=== PATIENT | male | born 1960 | race Caucasian/White ===

== ENCOUNTER 2019-11-15 08:30 | Outpatient (RCR) | payer OTHER, SELFPAY ==
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
--- NOTE | 2019-11-20 09:16 | PCPTNOTE ---
Patient did not show up for scheduled appointment this date.
--- NOTE | 2019-11-22 14:23 | PCPTNOTE ---
Patient came in this morning, however, his appointment wasn't until this afternoon, so he cancelled scheduled appointment this date. [ ]
--- NOTE | 2019-11-30 08:39 | PCPTNOTE ---
PHYSICAL THERAPY DISCHARGE NOTE Admitting Provider: Attending Provider: Madison Roland NP Patient:Bentley Hernandez Date of :1960 Bentley has not returned for any further treatments since 11/15/2019, therefore he will be discharged from physical therapy at this time. Follow up phone call was made. Bentley reports that his dizziness is no longer present and that his neck pain is better. He is using moist heat and performing HEP. He stated that he is unable to afford his $60 co pay per visit. Thank you for referring Bentley to [facility]. Please review, sign, date and return this discharge summary GUSTAVO. I have been updated about Bentley's current status and I agree with discharge from the above service at this time. Referring Physician Date
== END 2019-12-04 09:45 | disposition home or self-care (01) ==
LOC: ANHPT 08:30
PROVIDERS: PCP Nurse Practitioner Family; Visit Provider Nurse Practitioner Family
DX: M54.2 Cervicalgia (principal); R42 Dizziness and giddiness
CPT/HCPCS: 97110; 97140; 97162

== ENCOUNTER 2023-01-11 14:07 | Outpatient (CLI) | payer BC, SELFPAY ==
--- NOTE | ~2023-01-11 | MR_ITS ---
MRI of the cervical spine Clinical History: Numbness Technique: Axial T2-weighted and gradient images, and sagittal T1-weighted, T2-weighted, and STIR rey ges were acquired. Findings: There is no fracture or subluxation of the cervical spine. Vertebral bodies maintain normal height and alignment. There are reactive marrow signal changes due to underlying areas of degenerati ve disc disease. At C2-C3, there is a probable small disc extrusion centrally. No austin canal stenosis or cord juan david denys. Bilateral neural foramina are preserved. At C3-C4, there is disc osteophyte complex with flattening of the ventral cord, especially on the lef t side. There is probable bilateral neural foraminal narrowing. At C4-C5, there is mild disc osteophyte complex with mild ventral cord flattening. Bilateral neural f oramina are preserved. At C5-C6, there is mild disc osteophyte complex with associated right neural foraminal compromise. Le ft neural foramen preserved. No austin cord compression identified. At C6-C7, there is disc ossify complex with probable narrowing of the left neural foramen. Right neur al foramen is better preserved. No austin canal stenosis or cord compression. No abnormal signal seen in the spinal cord. Paravertebral soft tissues are unremarkable. Impression: Ebes-qu-yjykznli degenerative spondylosis, as detailed above. There are multilevel disc osteophyte co mplexes, with mild flattening of the ventral cord at C3-C4 and C4-C5, with multilevel neural foramina l narrowing. Reviewed, dictated and finalized at [facility]. Impression: [id number] degenerative spondylosis, as detailed above. There are multile jose disc osteophyte complexes, with mild flattening of the ventral cord at C3-C 4 and C4-C5, with multilevel neural foraminal narrowing.
--- NOTE | ~2023-01-11 | US_ITS ---
EXAMINATION: US art doppler w press UE BI DATE: 01/11/2023 15:25 INDICATION: Peripheral vascular disease. TECHNIQUE: Segmental pressures and plethysmographic and Doppler waveforms of the upper extremity josé miguel lashay were obtained. COMPARISON: None. FINDINGS: Right and left brachial artery pressures of 153 mm Hg and 146 mm Hg, respectively, are concordant (no rmal difference <= 30 mmHg). The right finger:brachial systolic pressure ratio is 0.61 (normal > 0.8) . Arterial Doppler waveforms demonstrate normal upstroke (normal upstroke < 0.2 s). The left finger:brachial systolic pressure ratio is 0.99. Segmental pressure gradients are normal. Ar terial Doppler waveforms demonstrates normal upstroke. IMPRESSION: 1. Decreased right finger:brachial systolic pressure ratio, consistent with right-sided arterial occl usive disease. Reviewed, dictated and finalized at location [facility]. IMPRESSION: 1. Decreased right finger:brachial systolic pressure ratio, consistent with rig ht-sided arterial occlusive disease.
== END 2023-01-11 14:08 | disposition home or self-care (01) ==
PROVIDERS: PCP Family Medicine; Visit Provider Orthopaedic Surgery
DX: I73.9 Peripheral vascular disease, unspecified (principal); M47.22 Other spondylosis with radiculopathy, cervical region
CPT/HCPCS: 72141; 93923

== ENCOUNTER 2023-04-06 01:12 | Day surgery (SDC) | payer BC, SELFPAY ==
[2023-02-09 14:52] VITALS: BMI 28.1
--- NOTE | 2023-04-05 22:26 | P.HP_ITS ---
History of Present Illness History of Present Illness Consent: Risks, benefits, and alternatives have been discussed and questions answered. Patient agrees to proceed with procedure. Chief complaint: Neoplasm Screening Narrative: Bentley Hernandez is a 62 year old male Referred for colon cancer screening.He has a history of polyps. His last colonoscopy was 5 years ago. Review of Systems Review of Systems: All systems reviewed & are unremarkable except as noted in HPI and below PMFSH Past Medical History Medical History Anxiety BMI 28.0-28.9,adult Chronic pain of left lower extremity Elevated fasting glucose Low back pain Neck pain Screening for prostate cancer Vertigo Family History Family History Father Hypertension Sibling Diabetes mellitus Mother Social History Social History Smoking packs per day: 0.5 Smoking cigarettes per day: 10.0 Years smoked: 35 Smoking pack-years: 17.50 Smoking status: Current every day smoker Tobacco type: cigarettes Second hand tobacco smoke exposure: No Smoking end date: 11/23/22 Alcohol intake: current Drinks per week: 18 Alcohol use details: 4 beers per day Substance use: current Substance use type: marijuana Lack of Transportation: No Lack of Food: Never True Current Housing: I Have Housing Concerned About Future Housing: No Difficulty Paying Gas/Electric Bills: No Difficulty Paying for Meds: No Currently Unemployed: No Education: High School Diploma/GED Difficulty w/ Childcare or Family Care: No Living arrangements: with family Occupation/Education: retired 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 Gender identity (if verbalized by the patient): Male Meds Home Medications and Allergies Home Medications Medication Instructions Recorded Confirmed Type albuterol sulfate 90 mcg/actuation 2 puff inhalation Q4-6H PRN 02/22/23 04/06/23 Rx aerosol inhaler (ProAir HFA) shortness of breath or wheezing #3 device bupropion HCl 150 mg 24 hr tablet, 150 mg PO QAM #90 tabs 02/22/23 04/06/23 Rx extended release (Wellbutrin XL) paroxetine HCl 30 mg tablet (Paxil) 30 mg PO DAILY #90 tabs 02/22/23 04/06/23 Rx Allergies Allergy/AdvReac Type Severity Reaction Status Date / Time Sulfa (Sulfonamide Allergy Unknown Rash Verified 04/06/23 07:09 Antibiotics) Exam Const: General: alert Orientation/consciousness: patient oriented x3 Resp: Auscultation: clear to auscultation bilaterally Cardio: Rhythm: regular rhythm GI: GI Palp: Yes Soft to palpation and No Tenderness to palpation present (GI) Neuro: General: patient oriented x3 Assessment and Plan Assessment and plan (1) Screening for colon cancer: Code(s): Z12.11 - Encounter for screening for malignant neoplasm of colon Status: Acute Assessment and Plan: Colonoscopy with possible biopsy or polypectomy or cautery or injection of substances.
[2023-04-06 07:10] VITALS: BP 133/64; PULSE 99; RESP 17; TEMP 36.3; O2SAT 96; BMI 27.6
[2023-04-06] MEDS: LACTATED RINGERS 1,000 ML 150 ML IV CONT (07:18)
--- NOTE | 2023-04-06 07:58 | WPDANESEPPF ---
Anes - Initial Pre Proc Eval Procedure: Operation Date: 04/06/23 08:30 Proposed Procedures p Screening Colonoscopy - Reinier Odom MD Date/Time: 04/06/23 07:58 Surgeon: Reinier Odom MD Pre Op Diagnosis: Neoplasm Screening Patient Data Age: 62 Gender: M Height: 1.78 m Weight: 87.2 kg Last Vital Signs Temp 97.3 F L 04/06/23 07:10 Pulse 99 04/06/23 07:10 Resp 17 04/06/23 07:10 BP 133/64 04/06/23 07:10 Pulse Ox 96 04/06/23 07:10 O2 Del Method Room Air 04/06/23 07:10 Allergies Allergy/AdvReac Type Severity Reaction Status Date / Time Sulfa (Sulfonamide Allergy Unknown Rash Verified 04/06/23 07:09 Antibiotics) Home Medications Medication Instructions Recorded Confirmed Type albuterol sulfate 90 mcg/actuation 2 puff inhalation Q4-6H PRN 02/22/23 04/06/23 Rx aerosol inhaler (ProAir HFA) shortness of breath or wheezing #3 device bupropion HCl 150 mg 24 hr tablet, 150 mg PO QAM #90 tabs 02/22/23 04/06/23 Rx extended release (Wellbutrin XL) paroxetine HCl 30 mg tablet (Paxil) 30 mg PO DAILY #90 tabs 02/22/23 04/06/23 Rx Patient hx anesthesia problems: none Family hx anesthesia problems: none Results Review: All pre-operative results and documents have been reviewed as part of the pre-operative evaluation. [facility] Past Medical History Medical History Anxiety BMI 28.0-28.9,adult Chronic pain of left lower extremity Elevated fasting glucose Low back pain Neck pain Screening for prostate cancer Vertigo Family History Family History Father Hypertension Sibling Diabetes mellitus Mother Social History Social History Smoking packs per day: 0.5 Smoking cigarettes per day: 10.0 Years smoked: 35 Smoking pack-years: 17.50 Smoking status: Current every day smoker Tobacco type: cigarettes Second hand tobacco smoke exposure: No Smoking end date: 11/23/22 Alcohol intake: current Drinks per week: 18 Alcohol use details: 4 beers per day Substance use: current Substance use type: marijuana Lack of Transportation: No Lack of Food: Never True Current Housing: I Have Housing Concerned About Future Housing: No Difficulty Paying Gas/Electric Bills: No Difficulty Paying for Meds: No Currently Unemployed: No Education: High School Diploma/GED Difficulty w/ Childcare or Family Care: No Living arrangements: with family Occupation/Education: retired 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 Informed Consent: The patient's anesthetic plan and its attendant risks and benefits were discussed with the patient/family/POA. Questions were solicited and answers provided to the satisfaction of the patient/family/POA.
[2023-04-06] MEDS: SIMETHICONE ORAL SUSPENSION 20 MG/0.3 ML 30 ML BOTTLE 0.6 ML IRRIGATION (08:45)
[2023-04-06 08:52] VITALS: BP 110/72; PULSE 78; RESP 17; O2SAT 94
[2023-04-06 09:02] VITALS: BP 142/87; PULSE 81; RESP 20; O2SAT 99
[2023-04-06 09:12] VITALS: BP 149/98; PULSE 78; RESP 16; O2SAT 98
== END 2023-04-06 09:25 | disposition home or self-care (01) ==
PROVIDERS: PCP Family Medicine; Visit Provider Internal Medicine Gastroenterology
PROC: 0DJD8ZZ Inspection of Lower Intestinal Tract, Via Natural or Artificial Opening Endoscopic (ICD-10-PCS; CPT 45378; principal; 2023-04-06 08:30)
DX: Z12.11 Encounter for screening for malignant neoplasm of colon (principal); K64.8 Other hemorrhoids; D12.5 Benign neoplasm of sigmoid colon; F41.9 Anxiety disorder, unspecified; Z79.51 Long term (current) use of inhaled steroids; F17.210 Nicotine dependence, cigarettes, uncomplicated; F12.90 Cannabis use, unspecified, uncomplicated
CPT/HCPCS: 45385; 88305; J2704; J7120

== ENCOUNTER 2023-06-06 09:00 | Outpatient (CLI) | payer BC, SELFPAY ==
--- NOTE | ~2023-06-06 | XR_ITS ---
EXAMINATION: XR ribs BI 3V w CXR 2V INDICATION: Pleurodynia TECHNIQUE: Frontal and lateral views of the chest and 3 views of the bilateral ribs were obtained. COMPARISON: None. FINDINGS: The lungs are free of acute opacities. No pleural effusion or pneumothorax. The cardiomedia stinal silhouette is normal. There is mild thoracic spondylosis. No displaced rib fracture is identif ied. IMPRESSION: 1. No acute cardiopulmonary abnormality or evidence of displaced rib fracture. Reviewed, dictated and finalized at location A.
== END 2023-06-06 09:01 | disposition home or self-care (01) ==
PROVIDERS: PCP Family Medicine; Visit Provider Nurse Practitioner Family
DX: R07.81 Pleurodynia (principal)
CPT/HCPCS: 71046; 71110

== ENCOUNTER 2023-07-06 14:25 | Outpatient (CLI) | payer BC, SELFPAY ==
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
== END 2023-07-06 14:26 | disposition home or self-care (01) ==
PROVIDERS: PCP Family Medicine; Visit Provider Nurse Practitioner Family
DX: R07.81 Pleurodynia (principal); K76.0 Fatty (change of) liver, not elsewhere classified; R91.8 Other nonspecific abnormal finding of lung field; V87.7XXA Person injured in collision between other specified motor vehicles (traffic), initial encounter; Z72.0 Tobacco use
CPT/HCPCS: 71260; Q9967

== ENCOUNTER 2023-08-10 09:53 | Outpatient (CLI) | payer BC, SELFPAY ==
--- NOTE | ~2023-08-10 | NM_ITS ---
HEPATOBILIARY SCAN Procedure: Hepatobiliary scan performed following IV administration 5 mCi Tc 99m Choletec. At 60 min utes 1 mcg CCK administered IV for evaluation of gallbladder ejection fraction. Indication:Right upper abdomen pain Comparison: None Findings: There is normal radiotracer uptake in the liver parenchyma with prompt excretion into the b iliary tract. Gallbladder visualized at 10 minutes. Small bowel visualized at 35 minutes. Normal g allbladder ejection fraction measures 95% (normal 10-90%, but most patients with gallbladder dysfunct ion have GBEF of less than 35%) Impression: 1: Normal hepatobiliary scan. Reviewed, dictated and finalized at location B. Impression: 1: Normal hepatobiliary scan.
== END 2023-08-10 09:54 | disposition home or self-care (01) ==
PROVIDERS: PCP Family Medicine; Visit Provider Nurse Practitioner Family
DX: R10.9 Unspecified abdominal pain (principal)
CPT/HCPCS: 78226; A9537

== ENCOUNTER 2023-09-14 08:46 | Outpatient (CLI) | payer BC, SELFPAY ==
--- NOTE | 2023-09-14 08:48 | EST_ITS ---
Patient Info Name: Bentley Hernandez Age: 63 years : 1960 Gender: Male Ht: 69 in Wt: 198 lbs BSA: 2.11 m2 HR: 78 bpm BP: 148 / 74 mmHg Heart Rhythm: Sinus Rhythm Exam Date: 09/14/2023 9:00 AM Exam Location: Echo Lab Patient Status: Outpatient Admit Date: 09/14/2023 Staff Ordering Physician: Antione Lawrence NP Attending Provider: Antione Lawrence NP Exercise Technologist: Julia Nascimento CT Exercise Physician: Jason Underwood DO Exam Type: CA stress test treadmill Study Info A treadmill exercise stress test was performed. Summary 1. 1. Negative Tulio exercise stress test for ischemic ST changes by ECG criteria. Patient achieved only 80% MPHR for age group which reduces sensitivity of the test. 2. 2. Reduced functional capacity, achieving 6.8 METs of workload. 3. 3. Baseline hypertension. 4. 4. Appropriate HR response to exercise. 5. 5. Appropriate HR recovery at 1 minute post exercise. 6. 6. No imaging with stress testing. 7. 7. Patient informed of the above results. Protocol: Tulio Stress ECG Details Stage: REST Duration (min): 1 min : 6 sec Speed (mph): 0.0 Grade (%): 0 HR (bpm): 82 SBP (mmHg): 148 DBP (mmHg): 74 METS: --- Stage: REST Duration (min): 10 min : 35 sec Speed (mph): 0.0 Grade (%): 0 HR (bpm): 78 SBP (mmHg): 148 DBP (mmHg): 74 METS: --- Stage: STAGE 1 Duration (min): 1 min : 0 sec Speed (mph): 1.7 Grade (%): 10 HR (bpm): 108 SBP (mmHg): 148 DBP (mmHg): 74 METS: --- Stage: STAGE 1 Duration (min): 2 min : 0 sec Speed (mph): 1.7 Grade (%): 10 HR (bpm): 113 SBP (mmHg): 148 DBP (mmHg): 74 METS: --- Stage: STAGE 1 Duration (min): 3 min : 0 sec Speed (mph): 1.7 Grade (%): 10 HR (bpm): 116 SBP (mmHg): 166 DBP (mmHg): 65 METS: --- Stage: STAGE 2 Duration (min): 1 min : 0 sec Speed (mph): 2.5 Grade (%): 12 HR (bpm): 125 SBP (mmHg): 166 DBP (mmHg): 65 METS: --- Stage: STAGE 2 Duration (min): 1 min : 18 sec Speed (mph): 2.5 Grade (%): 12 HR (bpm): 126 SBP (mmHg): 166 DBP (mmHg): 65 METS: --- Stage: RECOVERY Duration (min): 0 min : 41 sec Speed (mph): 0.0 Grade (%): 0 HR (bpm): 121 SBP (mmHg): 178 DBP (mmHg): 67 METS: --- Stage: RECOVERY Duration (min): 1 min : 41 sec Speed (mph): 0.0 Grade (%): 0 HR (bpm): 106 SBP (mmHg): 178 DBP (mmHg): 67 METS: --- Stage: RECOVERY Duration (min): 2 min : 41 sec Speed (mph): 0.0 Grade (%): 0 HR (bpm): 108 SBP (mmHg): 178 DBP (mmHg): 67 METS: --- Stage: RECOVERY Duration (min): 3 min : 41 sec Speed (mph): 0.0 Grade (%): 0 HR (bpm): 101 SBP (mmHg): 194 DBP (mmHg): 72 METS: --- Stage: RECOVERY Duration (min): 3 min : 44 sec Speed (mph): 0.0 Grade (%): 0 HR (bpm): 101 SBP (mmHg): 194 DBP (mmHg): 72 METS: --- Rest HR: 78 bpm Peak HR: 128 bpm Rest Sys BP: 148 mmHg Peak Sys BP: 194 mmHg Max Pred HR:
== END 2023-09-14 08:47 | disposition home or self-care (01) ==
LOC: ANHCARD 08:47
PROVIDERS: PCP Family Medicine; Visit Provider Nurse Practitioner Family
DX: R10.10 Upper abdominal pain, unspecified (principal)
CPT/HCPCS: 93017

== ENCOUNTER 2024-06-13 08:41 | Outpatient (CLI) | payer BC, SELFPAY ==
--- NOTE | ~2024-06-13 | MR_ITS ---
MRI of the lumbar spine Clinical History: Radiculopathy Technique: Axial T2-weighted images, and sagittal T1-weighted, T2-weighted, and and T2 fat-sat images were acquired. Findings: No fracture and 5. There is minimal grade 1 retrolisthesis of L2 over L3, and of L4 over L5 . No suspicious bone marrow signal abnormality seen. At L1-L2, there is mild degenerative disc narrowing. There is no disc bulge or herniation. There is m ild facet arthropathy. No central canal stenosis or neural foraminal narrowing. At L2-L3, there is mild degenerative disc narrowing. No disc bulge or herniation. There is mild to mo derate facet arthropathy. No central canal stenosis or neural foraminal narrowing. L3-L4, there is mild degenerative disc narrowing. There is minimal disc bulge and moderate facet arth ropathy. No central canal stenosis or neural foraminal narrowing. At L4-L5, there is moderate degenerative disc narrowing. There is disc bulge and moderate facet arthr opathy. No central canal stenosis. There is mild to moderate right neural foraminal narrowing. There is minimal left neural foraminal narrowing. At L5-S1, there is moderate degenerative disc narrowing. There is disc bulge and moderate facet arthr opathy. No central canal stenosis. There is moderate bilateral neural foraminal narrowing, left worse than right. Paravertebral soft tissues are unremarkable. Impression: Mild to moderate degenerative spondylitic changes, as above. Reviewed, dictated and finalized at [facility]. Impression: Mild to moderate degenerative spondylitic changes, as above.
== END 2024-06-13 08:42 ==
LOC: MICIMG 08:45
PROVIDERS: Visit Provider Nurse Practitioner Family
DX: M47.896 Other spondylosis, lumbar region (principal)
CPT/HCPCS: 72148